=== PATIENT | female | born 1990 | race Caucasian/White ===

== ENCOUNTER 2020-09-27 05:57 | Outpatient (CLI) | payer BC, OTHER | END 2020-09-27 09:13 | disposition home or self-care (01) | LOC: GENOP 05:57 | DX: O99.891 Other specified diseases and conditions complicating pregnancy (principal); R10.9 Unspecified abdominal pain; Z3A.37 37 weeks gestation of pregnancy | CPT/HCPCS: G0463 ==

== ENCOUNTER 2020-10-08 06:54 | Inpatient (IN) | payer BC, OTHER ==
[~2020-10-08] VITALS: Ht 149.9 cm; Wt 76.2 kg
[2020-10-08 07:45] LABS: HEMOGLOBIN 11.4 gm/dl (12.3-15.3); RED BLOOD COUNT 3.72 M/UL (4.00-5.10); WHITE BLOOD COUNT 10.2 K/UL (4.5-11.0)
[2020-10-09 07:11] LABS: HEMOGLOBIN 10.4 gm/dl (12.3-15.3)
[2020-10-09] MEDS ORDERED: COLACE 100MG C100 MG PO (11:01)
[2020-10-09] MEDS ORDERED: IBUPROFEN800 MG PO (11:01)
[2020-10-09] MEDS ORDERED: PERCOCET 5/325 T1 EA PO (18:32)
== END 2020-10-09 18:48 | disposition home or self-care (01) | DRG 807 ==
LOC: GENOP 06:54 → OB 07:30 → GENOP 07:31 → OB 07:31
PROVIDERS: ADMIT Obstetrics & Gynecology
PROC: 10E0XZZ Delivery of Products of Conception, External Approach (ICD-10-PCS; principal; 2020-10-08)
DX: O69.81X0 Labor and delivery complicated by cord around neck, without compression, not applicable or unspecified (principal); Z37.0 Single live birth; Z3A.39 39 weeks gestation of pregnancy; Z28.21 Immunization not carried out because of patient refusal
CPT/HCPCS: 36415; 51702; 81001; 83518; 85014; 85018; 85025; 87635; J2001; J2590; J3010; J7120